=== PATIENT | male | born 1940 | race Caucasian/White ===

== ENCOUNTER 2016-08-25 10:00 | Inpatient (IN) ==
[2016-08-25 11:10] LABS: URINE CULTURE NEEDED? NO; URINE MICRO REVIEW NEEDED? NO; URINE SOURCE CLEAN CATCH
[2016-08-25 11:11] LABS: MANUAL DIFF NEEDED? NO
[2016-08-25 11:16] LABS: BASO% 0.2 % (0.0-0.8); EOS# 0.16 X1000 (0.0-0.7); EOS% 1.8 % (0.0-10.0); HEMATOCRIT 46.8 % (42.0-52.0); HEMOGLOBIN 16.9 g/dL (14.0-18.0); IMM GRAN# 0.12 X1000 (0.0-0.04); IMM GRAN% 1.4 % (0.0-0.5); LYMPH# 1.69 X1000 (1.2-3.4); LYMPH% 19.4 % (20.5-51.1); MCH 31.5 PG (27-31); MCHC 36.1 g/dL (33-37); MCV 87.3 FL (81-99); MONO# 1.06 X1000 (0.11-0.59); MONO% 12.2 % (1.7-9.3); MPV 11.4 FL (7.4-10.4); PLT 181 X1000 (130-400); RBC 5.36 XMIL (4.7-6.1)
[2016-08-25 11:18] LABS: BILIRUBIN URINE NEGATIVE (NEGATIVE); BLOOD URINE NEGATIVE (NEGATIVE); COLOR YELLOW; GLUCOSE URINE >1000 mg/dL (NEGATIVE); LEUKOCYTES URINE NEGATIVE (NEGATIVE); NITRITE URINE NEGATIVE (NEGATIVE); PROTEIN URINE NEGATIVE (NEGATIVE); SP GRAVITY URINE 1.024; TURBIDITY URINE CLEAR (CLEAR); UR EPITHELIAL CELLS <10 /HPF (<10); URINE BACTERIA NEGATIVE /HPF; URINE RBC <10 /HPF (<10); URINE WBC <10 /HPF (<10); UROBILINOGEN URINE NORMAL (NORMAL)
[2016-08-25 11:26] LABS: INR 1.01; PROTIME 10.6 Seconds (9.2-11.7)
--- NOTE | 2016-08-25 11:26 | Diag Imaging Result Doc PS360 ---
EXAM: HEAD W/O CONTRAST HISTORY: stroke like symptoms TECHNIQUE: Dose reduction protocol COMPARISON: None. FINDINGS: No parenchymal hemorrhage. No epidural or subdural hematoma. No subarachnoid hemorrhage. Small old left basal ganglia infarct. Small hypodense area adjacent to this superiorly in the parietal lobe. Diffuse atrophy. No hydrocephalus. IMPRESSION: 1.No hemorrhage 2.Possible small recent infarct in the left parietal lobe 3.Small old left infarct 4.Atrophy Electronically signed by Lee Aguilera 08/25/2016 11:24 AM
[2016-08-25 11:28] LABS: UR AMPHETAMINES QUAL NONE DETECTED (NONE DETECT); UR BARBITUATES QUAL NONE DETECTED (NONE DETECT); UR BENZODIAZEPIN QUAL NONE DETECTED (NONE DETECT); UR CANNABINOIDS QUAL NONE DETECTED (NONE DETECT); UR COCAINE QUAL NONE DETECTED (NONE DETECT); UR METHADONE QUAL NONE DETECTED (NONE DETECT); UR OPIATES QUAL NONE DETECTED (NONE DETECT); UR OXYCODONE QUAL NONE DETECTED (NONE DETECT); UR PCP QUAL NONE DETECTED (NONE DETECT)
[2016-08-25] MEDS: NS 1,000 ML IV PRN (11:28)
--- NOTE | 2016-08-25 11:28 | Diag Imaging Result Doc PS360 ---
EXAM: CHEST-PORTABLE HISTORY: stroke like symptoms TECHNIQUE: Upright AP COMPARISON: None. FINDINGS: The lungs are well expanded. The heart is not enlarged. The vessels are not distended. No pneumonia. No pleural effusions identified. There is a granuloma in the right base. IMPRESSION: Negative chest Electronically signed by Lee Aguilera 08/25/2016 11:26 AM
[2016-08-25] MEDS ORDERED: ASPIRIN PO ONE (11:35)
[2016-08-25 11:44] LABS: ALBUMIN 4.4 g/dL (3.5-5.0); CALCIUM 9.6 mg/dL (8.8-10.2); POTASSIUM 3.8 mmol/L (3.5-5.1); TOTAL BILIRUBIN 0.94 mg/dL (0.20-1.00); TOTAL PROTEIN 6.4 g/dL (6.3-8.3)
--- NOTE | 2016-08-25 12:07 | PROVIDER DOCUMENTATION ---
This chart was entered by Magalie Montes De Oca Scribe, acting as scribe for Shikha Arora MD. HPI-Syncope/Dizziness - General Chief Complaint: Dizziness Stated Complaint: CANNOT STAND UP/DIZZY Time Seen by Provider: 08/25/16 10:21 Source: patient Allergies/Adverse Reactions: Patient Allergies Allergy/AdvReac Type Severity Reaction Status Date / Time No Known Allergies Allergy Verified 08/25/16 10:47 Home Medications: Home Medication List Medication Instructions Recorded Confirmed Last Taken Type Aspirin 81 mg PO DAILY 09/30/12 08/25/16 08/25/16 07:00 History Clopidogrel [Plavix] 75 mg PO DAILY 09/30/12 08/25/16 08/25/16 07:00 History Rosuvastatin Calcium [Crestor] 5 mg PO DAILY 03/09/15 08/25/16 08/24/16 18:00 History Amlodipine/Valsartan/Hcthiazid 1 tab PO DAILY 08/25/16 08/25/16 08/25/16 07:00 History [[id number] 10-160-25 mg] Meclizine [Antivert] 1 tab PO TID 08/25/16 08/25/16 08/25/16 07:00 History Tizanidine HCl 2 mg PO TID PRN 08/25/16 08/25/16 Unknown History - History of Present Illness-Syncope/Dizzy Nature of Presenting Problem: Pt is a 76 year old male who came to the ED with a cc of dizziness. Pt reports he has been dizzy for three weeks and was prescribed with meclizine which took away the dizziness. Pt reports he ran out of the medication two days ago and the dizziness came back. Pt reports that his brother has meclizine and the pt took some of his and the medication did not work. Pt reports that he cannot walk without feeling like he is going to fall over. Pt has a hx of stroke. Prior Episodes: reports: recent history Onset/Duration: reports: 2 days ago Timing: reports: still present Position/Activity at time of episode: reports: activity Symptoms prior to episode: reports: lightheaded, nausea/vomiting Current Symptoms: reports: dizzy Similar symptoms previously: reports: workup for same problem Recently Seen Here or By Another Healthcare Provider: No - Dizziness Severity in ED: reports: mild Dizziness Related Current/Associated Symptoms: reports: nausea/vomiting, dizzy, off balance, cannot walk, cannot stand Any recent trauma/injury?: reports: none Review of Systems - Adult - REVIEW OF SYSTEMS - ADULT Constitutional: denies: chills, fever Eyes: reports: no symptoms reported Ears, Nose, Mouth & Throat: reports: no symptoms reported Cardiovascular: denies: chest pain, heart murmur, orthopnea Respiratory: reports: no symptoms reported Gastrointestinal: reports: no symptoms reported Genitourinary: reports: no symptoms reported Musculoskeletal: reports: no symptoms reported Integumentary: reports: no symptoms reported Neurological: reports: ataxia, dizziness/vertigo, loss of balance. denies: numbness, seizure Psychiatric: reports: no symptoms reported Endocrine: reports: no symptoms reported Hematologic/Lymphatic: reports: no symptoms reported Allergic/Immunologic: reports: no symptoms reported All Other Systems: Reviewed and Negative Past History - Adult - PAST MEDICAL HISTORY-ADULT Review of Records: reports: Nursing Assessment Review Major Childhood Illnesses: reports: denies history Cardiovascular: reports: HTN, hyperlipidemia Respiratory: reports: denies history Gastrointestinal: reports: denies history Obstetrical/Gynecological: reports: denies history Genitourinary: reports: denies history Musculoskeletal: reports: denies history Neurological: reports: CVA Endocrine/Immune: reports: denies history Other Conditions: reports: denies history - PRIOR SURGERIES/PROCEDURES Surgical/Procedure History: reports: appendectomy - IMMUNIZATION STATUS Childhood Immunizations: See Nurse Assessment Flu Vaccine: See Nurse Assessment - FAMILY HISTORY Family History: reviewed, not pertinent Physical Exam-General - PHYSICAL EXAM-ADULT Initial Vital Signs Reviewed: Yes - CONSTITUTIONAL General Appearance: appears well, alert - EYES Eyes: PERRL/EOMI - HEAD, EARS, NOSE, MOUTH & THROAT HENMT: normocephalic/atraumatic, moist mucous membranes - NECK Neck: normal inspection - RESPIRATORY Respiratory: chest non-tender, lungs clear, normal breath sounds - CARDIOVASCULAR Cardiovascular: regular rate, rhythm - GASTROINTESTINAL (ABDOMEN) Abdominal Exam: normal bowel sounds, non tender, soft - MUSCULOSKELETAL Back Exam: normal inspection, no vertebral tenderness Extremity: non-tender, other (ataxia on the RLE mild ataxia on the LLE) - SKIN Integumentary: normal color, normal turgor, warm/dry - NEUROLOGIC Neurologic: grossly normal, facial droop (right) - PSYCHIATRIC Psych/Mental Status: normal mood/affect, normal thought content, normal thought process, oriented x 3 Progress - PLAN OF CARE/RESULTS Progress/Plan/Lab Results: Vital Signs - 8 hr 08/25/16 10:14 Temperature 97.8 F Pulse Rate 70 Respiratory Rate 20 Blood Pressure 164/66 O2 Sat by Pulse Oximetry 97 Laboratory Results - last 24 hr 08/25/16 08/25/16 08/25/16 10:20 10:20 10:30 WBC RBC Hgb Hct MCV MCH MCHC RDW Std Deviation Plt Count MPV Immature Gran % (Auto) Neut % (Auto) Lymph % (Auto) Sioux % (Auto) Eos % (Auto) Baso % (Auto) Immature Gran # (Auto) Neut # (Auto) Lymph # (Auto) [place]oux # (Auto) Eos # (Auto) Baso # (Auto) PT INR PTT (Actin FS) Sodium Potassium Chloride Carbon Dioxide Anion Gap BUN Creatinine Estimated GFR/1.73 m2 BUN/Creatinine Ratio Glucose Calculated Osmolality Calcium Total Bilirubin AST ALT Alkaline Phosphatase Creatine Kinase 60 Troponin T Total Protein Albumin Globulin Albumin/Globulin Ratio Urine Source CLEAN CATCH Urine Color YELLOW Urine Turbidity CLEAR Urine pH 7.0 Ur Specific Ona 1.024 Urine Protein NEGATIVE Ur Glucose (Stick) >1000 A Ur Ketones (Stick) NEGATIVE Urine Blood NEGATIVE Urine Nitrite NEGATIVE Urine Bilirubin NEGATIVE Urobilinogen Dipstick NORMAL Urine Leukocytes NEGATIVE Urine WBC (Auto) <10 Urine RBC (Auto) <10 U Epithel Cells (Auto) <10 Urine Bacteria (Auto) NEGATIVE Urine Opiates Screen NONE DETECTED Ur Oxycodone Screen NONE DETECTED Ur Methadone, Qual NONE DETECTED Ur Barbiturates Screen NONE DETECTED Ur Phencyclidine Scrn NONE DETECTED Ur Amphetamines Screen NONE DETECTED U Benzodiazepines Scrn NONE DETECTED Urine Cocaine Screen NONE DETECTED U Cannabinoids Screen NONE DETECTED 08/25/16 08/25/16 08/25/16 10:30 10:30 10:30 WBC 8.69 RBC 5.36 Hgb 16.9 Hct 46.8 MCV 87.3 MCH 31.5 H MCHC 36.1 RDW Std Deviation 12.7 Plt Count 181 MPV 11.4 H Immature Gran % (Auto) 1.4 H Neut % (Auto) 65.0 Lymph % (Auto) 19.4 L Sioux % (Auto) 12.2 H Eos % (Auto) 1.8 Baso % (Auto) 0.2 Immature Gran # (Auto) 0.12 H Neut # (Auto) 5.64 Lymph # (Auto) 1.69 Sioux # (Auto) 1.06 H Eos # (Auto) 0.16 Baso # (Auto) 0.02 PT 10.6 INR 1.01 PTT (Actin FS) 25.0 Sodium 134 L Potassium 3.8 Chloride 93 L Carbon Dioxide 27 Anion Gap 14 BUN 27 H Creatinine 1.2 Estimated GFR/1.73 m2 59 BUN/Creatinine Ratio 23 Glucose 356 H Calculated Osmolality 288 Calcium 9.6 Total Bilirubin 0.94 AST 18 ALT 31 Alkaline Phosphatase 108 Creatine Kinase Troponin T Total Protein 6.4 Albumin 4.4 Globulin 2.0 Albumin/Globulin Ratio 2.2 Urine Source Urine Color Urine Turbidity Urine pH Ur Specific Ona Urine Protein Ur Glucose (Stick) Ur Ketones (Stick) Urine Blood Urine Nitrite Urine Bilirubin Urobilinogen Dipstick Urine Leukocytes Urine WBC (Auto) Urine RBC (Auto) U Epithel Cells (Auto) Urine Bacteria (Auto) Urine Opiates Screen Ur Oxycodone Screen Ur Methadone, Qual Ur Barbiturates Screen Ur Phencyclidine Scrn Ur Amphetamines Screen U Benzodiazepines Scrn Urine Cocaine Screen U Cannabinoids Screen 08/25/16 10:30 WBC RBC Hgb Hct MCV MCH MCHC RDW Std Deviation Plt Count MPV Immature Gran % (Auto) Neut % (Auto) Lymph % (Auto) Sioux % (Auto) Eos % (Auto) Baso % (Auto) Immature Gran # (Auto) Neut # (Auto) Lymph # (Auto) [place] # (Auto) Eos # (Auto) Baso # (Auto) PT INR PTT (Actin FS) Sodium Potassium Chloride Carbon Dioxide Anion Gap BUN Creatinine Estimated GFR/1.73 m2 BUN/Creatinine Ratio Glucose Calculated Osmolality Calcium Total Bilirubin AST ALT Alkaline Phosphatase Creatine Kinase Troponin T < 0.010 Total Protein Albumin Globulin Albumin/Globulin Ratio Urine Source Urine Color Urine Turbidity Urine pH Ur Specific Ona Urine Protein Ur Glucose (Stick) Ur Ketones (Stick) Urine Blood Urine Nitrite Urine Bilirubin Urobilinogen Dipstick Urine Leukocytes Urine WBC (Auto) Urine RBC (Auto) U Epithel Cells (Auto) Urine Bacteria (Auto) Urine Opiates Screen Ur Oxycodone Screen Ur Methadone, Qual Ur Barbiturates Screen Ur Phencyclidine Scrn Ur Amphetamines Screen U Benzodiazepines Scrn Urine Cocaine Screen U Cannabinoids Screen Orders Category Date Time Status Cardiac Monitoring DIRECTED Care 08/25/16 10:45 Active Finger Stick Blood Sugar (ED) DIRECTED Care 08/25/16 10:45 Active Saline Loc NOW Care 08/25/16 10:45 Active CHEST-PORTABLE [RAD] Stat Exams 08/25/16 10:45 Completed HEAD W/O CONTRAST [CT] Stat Exams 08/25/16 11:00 Completed CBC WITH ELECTRONIC DIFF [HEME] Stat Lab 08/25/16 10:30 Completed CK PROFILE [SP CHEM] Stat Lab 08/25/16 10:30 Completed COMPREHENSIVE METABOLIC PANEL [CHEM] Stat Lab 08/25/16 10:30 Completed PROTIME WITH INR [COAG] Stat Lab 08/25/16 10:30 Completed PTT [COAG] Stat Lab 08/25/16 10:30 Completed TROPONIN T Stat Lab 08/25/16 10:30 Completed URINALYSIS W/POSS RFLX CULT-1 [URINALYSIS] Stat Lab 08/25/16 10:20 Completed URINE DRUG SCREEN Stat Lab 08/25/16 10:20 Completed 0.9% Sodium Chloride Inj [Ns] 1,000 ml Med 08/25/16 10:45 Active IV 75 mls/hr Aspirin Med 08/25/16 11:35 Discontinued 325 mg PO NOW ONE EKG [EKG] Stat Ther 08/25/16 10:17 Ordered EKG [EKG] Stat Ther 08/25/16 10:45 Ordered Transfer/Admit Order [TRANSFER] Routine Transfer 08/25/16 11:42 Ordered Result Diagrams: 08/25/16 10:30 08/25/16 10:30 - XRAY 1 XRAY Study: Chest (negative chest) - CT/MRI 1 CT Study: Head (1. no hemorrhage 2. possible small recent infarct in the left parietal lobe 3. small old left infarct 4. atrophy) - CONSULTS/PCP/HOSPITALIST Notification #1 *Consult/PCP/Hospitalist*: Scotty Nurse Practitioner Time Discussed: 11:37 (Accepting pt for Dr. Morrell ) Consult Disposition: Admit Departure - Departure Time of Disposition Decision: 12:06 DIAGNOSIS: Stroke Qualifiers: CVA mechanism: other Qualified Code(s): I63.8 - Other cerebral infarction Disposition: ADMITTED INPATIENT 09 Certified Medical Emergency: Emergent Condition: Fair Referrals and Follow-Ups: Spencer Boyer DO [Primary Care Provider] - - Critical Care Note This patient required my direct & personal management of CC.: Yes Total Time (mins): 31 Critical Care Statement: This patient required my direct personal management to treat or rule out processes, the absence of which, could potentiallly result in sudden, clinically significant life or limb threatening deterioration. This chart was documented by the indicated scribe, (Magalie Montes De Oca Scribe) and accurately reflects the services I performed and decisions made by me, Shikha Arora MD, as attested by the provider's signature.
--- NOTE | 2016-08-25 12:43 | HISTORY AND PHYSICAL ---
HISTORY OF PRESENT ILLNESS: A 76-year-old, white male who states that 2 weeks ago he woke up and had vertiginous symptoms, a lot of spinning. He started on some Antivert. It seemed to get a little better and then the day before yesterday, it seemed to get a little worse or reoccurred and did not seem to get much relief. He denies any change in his motor strength in his arms or legs. Denies any trouble with speech or vision. His said she did not notice any change. He did have a little bit of nausea with the 1st event. His primary care is Dr. Dain Boyer. PAST MEDICAL HISTORY: 1. Apparently, he has had a CVA the left hemisphere about 16 years ago or so, and he retired. 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 2. Hypertension. 3. Hyperlipidemia. PAST SURGICAL HISTORY: Really none except he had his appendix I think taken out years ago. ALLERGIES: None. MEDICATION: He was taking aspirin. Previously, he was taking some blood thinner. Review his medications . SOCIAL HISTORY: Negative for alcohol, tobacco, and illicit drugs. FAMILY HISTORY: Noncontributory. REVIEW OF SYSTEMS: General: No weight gain or loss. No fever or chills. HEENT: Unremarkable. Respiratory: No increased work of breathing or dyspnea. Cardiovascular: No chest pain or tachy palpitation. GI/: No gross hematuria or dysuria. Musculoskeletal/Neurologic: He has had a right partial paresis on the right hand and his right leg. His right hand, difficult in movement. It has improved. Apparently, with his original stroke, he had right facial drooping and some speech trouble which has resolved. He did go to speech therapy and physical therapy. PHYSICAL EXAMINATION: VITAL SIGNS: Temperature 97.8 degrees, pulse 70, respirations 20, blood pressure 164/66. LUNGS: Clear in all lung askew. CARDIOVASCULAR: Regular rhythm and rate without murmur or S3. ABDOMEN: Soft. SKIN: Warm and dry. GENERAL: Weight 171 pounds. Height 5 feet 9 inches. O2 saturation 97%. HEENT: Pupils are equal and round. CVP less than 6 cm. EXTREMITIES: Right hand with intentional tremor and some contractions in his fingers. He states that has not changed. NEUROLOGIC: No facial drooping. Tongue is midline. Visual askew full. He has a lateral nystagmus, more prominent on the left. DIAGNOSTIC DATA: Blood work with a white count of 8690, hematocrit 46, platelet count 181,000. Sodium 134, potassium 3.8, chloride 93, BUN 27, creatinine 1.2, blood sugar was 356. Alkaline phosphatase 108. Troponin less than 0.01. Prothrombin time 10.6, PTT 25. Urine drug screen is negative for opiates, oxycodone, methadone, barbiturates, phencyclidine, amphetamines, benzodiazepines, cocaine, and cannabinoids. Urinalysis unremarkable. Chest x-ray, negative chest CT of the head, no hemorrhage, possible small recent infarct in the left parietal lobe, small old left infarct. ASSESSMENT AND PLAN: 1. Vertigo, vertiginous symptoms which I believe may be unrelated. We will check an MRA of the neck and head tomorrow. We will watch his blood pressure. Right now, it appears to be appropriate, running between 140s and 160s. We will check his cholesterol in the morning. Check an echocardiogram. Give him some intravenous fluid and see how we do clinically. Asked neurology to see in the morning. 2. He is not known to have diabetes so that has new onset diabetes with his sugar. We need to check a hemoglobin A1c and put him on a sliding scale. Put him on diabetic diet and start him on Glucophage. Consider adding glipizide to it. 3. Hypertension. We will watch blood pressure carefully. Allow systolic to go 140-170 at this point. 4. Vertigo. Continue the Antivert as needed. MEDICATIONS: He is on amlodipine, valsartan/hydrochlorothiazide combination which is 10/160/25 one a day. Continue aspirin 81 mg a day. Plavix 75 mg a day. Antivert 12.5/25 mg t.i.d. Crestor, he is on 5 mg a day, tizanidine 2 mg t.i.d. p.r.n. cc: Charles Rizo MD
[2016-08-25] MEDS: HUMALOG SUBQ SCH ×2 (15:45→20:27)
--- NOTE | 2016-08-25 17:29 | ECHO REPORT ---
ORDER DATE: 08/25/2016 MEASUREMENTS: Left ventricular end-diastolic diameter 3.9, systolic diameter 2.9, septal thickness 1.3, left atrium 3.3, aortic root 3.0 SUMMARY: 1. Technically difficult study due to limited acoustic window quality. 2. Mild sclerosis of trileaflet aortic valve demonstrated. Aortic valve opening appears adequate. Peak gradient across the aortic valve is 11 mmHg. Mild mitral annular calcification is demonstrated. There is trace mitral regurgitation. Tricuspid and pulmonic valves are without structural abnormality with trace tricuspid regurgitation. Estimated systolic PA pressure by Doppler is 40 mmHg. The aortic root is normal in size. 3. Normal left ventricular chamber size with mild concentric left hypertrophy is demonstrated. Estimated left ventricular ejection fraction appears to be at least 65%. No regional wall motion abnormalities can be appreciated. Doppler suggests grade 1 left ventricular diastolic dysfunction. Left atrium, right atrium, and right ventricle are normal in size with normal right ventricular systolic function. 4. No pericardial effusion. 5. Appearance of inferior vena cava suggests normal central venous pressure. CONCLUSIONS: 1. Technically difficult study. 2. Mild aortic valve sclerosis. 3. Mild mitral annular calcification. 4. Trace tricuspid regurgitation with mild pulmonary hypertension by Doppler. 5. Mild concentric left hypertrophy with estimated left ventricle ejection fraction at least 65%. 6. Grade 1 left ventricular diastolic dysfunction suggested. cc: MD Nicholas Bennett CRNP
[2016-08-26] MEDS: NS 1,000 ML IV PRN (03:21)
--- NOTE | 2016-08-26 05:31 | EKG Report ---
Test Performed on : 08/25/2016 10:11:47 AM Test Reason : DIZZY Blood Pressure : / mmHG Vent. Rate : 071 BPM Atrial Rate : 071 BPM P-R Int : 130 ms QRS Dur : 076 ms QT Int : 384 ms P-R-T Axes : 051 053 079 degrees QTc Int : 417 ms Normal sinus rhythm. Nonspecific T wave abnormality Abnormal ECG When compared with ECG of 09-MAR-2015 13:47, No significant change was found Unconfirmed Result
[2016-08-26 06:18] LABS: HEMATOCRIT 41.7 % (42.0-52.0); MCH 31.7 PG (27-31); MCV 88.2 FL (81-99); MPV 11.5 FL (7.4-10.4); RBC 4.73 XMIL (4.7-6.1)
[2016-08-26] MEDS: HUMALOG SUBQ SCH ×2 (06:18→11:09)
[2016-08-26 06:24] LABS: HEMOGLOBIN A1C 7.6 % (4.8-6.0)
[2016-08-26 06:51] LABS: AGAP 12; BUN 23 mg/dL (8-22); CALCIUM 8.3 mg/dL (8.8-10.2); CHLORIDE 102 mmol/L (98-107); COSMO 282; POTASSIUM 3.9 mmol/L (3.5-5.1); SODIUM 138 mmol/L (136-145); TCO2 24 mmol/L (25-35)
[2016-08-26] MEDS ORDERED: CRESTOR PO SCH (09:00)
[2016-08-26] MEDS ORDERED: PLAVIX PO SCH (09:00)
[2016-08-26] MEDS ORDERED: ASPIRIN PO SCH (09:00)
--- NOTE | 2016-08-26 09:19 | Diag Imaging Result Doc PS360 ---
EXAM: MRI BRAIN W W/O CONTRAST HISTORY: stroke TECHNIQUE: T1 axial and sagittal, FSPGR 3-D with gadolinium axial with coronal reformation, T2 FLAIR and T2 axial, DWI axial with apparent and exponential diffusion coefficient axial. COMMENT: There is no evidence for restricted diffusion bleed mass effect or abnormal extra-axial fluid collection. There is no evidence of abnormal gadolinium enhancement. There are few scattered punctate areas of increased T2-weighted signal intensity particularly near the atrium of the right lateral ventricle and there is a lacunae extending from the subcutaneous ependymal of periventricular white matter of the sutton radiata on the left extending into the basal ganglia region. In addition there is a focal area of hyperintensity on the FLAIR and T2-weighted images adjacent to the left lateral ventricle in the sutton radiata. IMPRESSION: Chronic ischemic changes. No evidence of acute infarct or mass. Electronically signed by Jared Fowler 08/26/2016 9:17 AM
--- NOTE | 2016-08-26 09:22 | Diag Imaging Result Doc PS360 ---
EXAM: MRA BRAIN W/O CONTRAST HISTORY: cva TECHNIQUE: 3-D [id number] COMMENT: The posterior communicating artery is visible on the right but not the left. There is no evidence of aneurysm. There are apparent stenoses thick lesions present in the P1 segment on the left and less peripheral flow is demonstrated on the left than on the right. There is also some apparent atheromatous change in the M1 segment on the right. Both anterior cerebral arteries are demonstrated proximally. IMPRESSION: Atherosclerotic changes as described particularly in the left posterior cerebral artery. No evidence of aneurysm. Electronically signed by Jared Fowler 08/26/2016 9:20 AM
--- NOTE | 2016-08-26 09:25 | Diag Imaging Result Doc PS360 ---
EXAM: MRA NECK W/CONT HISTORY: cva TECHNIQUE: FT contrast-enhanced MRA with processed images COMMENT: There are no apparent lesions in the trachea cephalic, common carotid or subclavian arteries. Both vertebral arteries are patent as is the basilar artery. The proximal portion of the right external carotid artery is not well demonstrated. There may be some atherosclerotic irregularity in the proximal left internal carotid artery. No evidence of significant stenosis is present. IMPRESSION: No evidence of significant stenosis in the common, internal carotid, or vertebral arteries. Electronically signed by Jared Fowler 08/26/2016 9:23 AM
[2016-08-26 12:35] VITALS: BP 138/53
--- NOTE | 2016-08-26 15:44 | DISCHARGE SUMMARY ---
ADMISSION DATE: 08/25/2016 DISCHARGE DATE: 08/26/2016 PERTINENT PROCEDURES: Head CT showed no hemorrhage, possible small recent infarct in the left parietal lobe, small old left infarct, atrophy. Echocardiogram showed an EF of 65% with grade 1 left ventricular diastolic dysfunction. Brain MRA showed atherosclerotic changes particularly in the left posterior cerebral artery. No evidence of aneurysm. Neck MRA showed no evidence of significant stenosis in the common internal or vertebral artery. Brain MRI showed chronic ischemic changes. No evidence of acute infarct or mass. DISCHARGE DIAGNOSES: 1. Vertigo likely to due labyrinthitis. Patient will continue on his Ativan and meclizine and follow up with an ENT. Cerebrovascular accident, transient ischemic attack ruled out. 2. Previous cerebrovascular accident with right-sided hemiparesis. 3. Dyslipidemia. Continue statin. 4. Hypertension with grade 1 diastolic dysfunction. HOSPITAL COURSE: Mr. Milner is a 76-year-old male who has a previous history of CVA with right-sided hemiparesis about 16 years ago, hypertension, hyperlipidemia who came in with complaints of dizziness. He stated that 2 weeks ago he woke up, had vertigo type symptoms with a lot of spinning. He was started on some Antivert. He had gotten a little bit better then the day before his admission it seemed to get a little worse and reoccurred and he did not get much relief. Denied any change in his motor strength in his arms or legs, any trouble with speech or vision. His did not notice any changes. He did have a little bit of nausea with the 1st event. Head CT that was done in the ED did show no hemorrhage, possible small recent infarct in the left parietal lobe and small old left infarct and atrophy so the patient was kept overnight for further testing. He underwent a brain MRI that showed no acute infarct or mass as well as a neck MRA and brain MRA as well as an echocardiogram. The patient was continued on his Antivert. His symptoms have improved and he is being discharged home today to follow up with an EGD for his suspected labyrinthitis. VITAL SIGNS: Temperature is 97.9 degrees, heart rate 65, respiration 20, blood pressure 138/53, O2 is 97% on room air. DISCHARGE DIET: Is diabetic. DISCHARGE MEDICATIONS: 1. Amlodipine/valsartan/hydrochlorothiazide 10/160/25 mg 1 tab p.o. daily. 2. Aspirin 81 mg p.o. daily. 3. Plavix 75 mg p.o. daily. 4. Ativan 0.25 mg p.o. b.i.d. 5. Antivert 12.5 mg p.o. t.i.d. 6. Prilosec 40 mg p.o. daily. 7. Crestor 5 mg p.o. daily. FOLLOWUP: The patient is being discharged home with his . He will follow up with an ENT as well as his primary care physician, Dr. Spencer Boyer in 1 week. Patient can return to the ED for any worsening of symptoms. Dictated by PA Stoner for Gabe Tai MD cc: Gabe Tai MD MTDD
[2016-08-26] MEDS ORDERED: ANTIVERT PO SCH (17:00)
[2016-08-26] MEDS ORDERED: ATIVAN PO SCH (21:00)
[2016-08-27] MEDS ORDERED: PRILOSEC PO SCH (07:00)
== END 2016-08-26 15:56 | disposition home or self-care (01) ==
LOC: ED 10:00 → 3N 13:04 → SUATTDRO 13:04 → 3N 14:54
PROVIDERS: ATTEND Internal Medicine